=== PATIENT | male | born 1930 | race Caucasian/White ===

== ENCOUNTER 2016-12-08 17:28 | Inpatient (IN) | payer BC, OTHER ==
[~2016-12-08] VITALS: Ht 165.1 cm; Wt 64.0 kg
[2016-12-08] MEDS ORDERED: ONDANSETRON 4 MG INJ IV STA (19:14)
[2016-12-08] MEDS ORDERED: LIDOCAINE/MYLANTA 40 ML BTL PO STA (19:14)
[2016-12-08] MEDS ORDERED: SOD CHLORIDE 0.9% 1,000 ML IV STA (19:14)
[2016-12-08] MEDS ORDERED: BELLADONNA/PHENOBARBITAL TAB PO STA (19:14)
[2016-12-08] MEDS ORDERED: KETOROLAC 15 MG INJ IV STA (19:14)
[2016-12-08] MEDS ORDERED: FAMOTIDINE 20 MG TAB PO STA (19:14)
[2016-12-08] MEDS ORDERED: PIPER-TAZO 3.375 GM IV (PMX) 100 ML IVPB ONE (21:00)
[2016-12-08] MEDS ORDERED: SOD CHLORIDE 0.9% 1,000 ML IV ONE (21:00)
--- NOTE | 2016-12-08 21:56 | RADRPT ---
PROCEDURE: CT abdomen and pelvis without intravenous contrast. CLINICAL INDICATION: Pain. TECHNIQUE: CT of the abdomen/pelvis was performed utilizing axial images with reconstructions in s agittal and coronal planes. The administered radiation dose is CTDI 7.7 mGy, DLP 431 mGy-cm. One or more of the following dose reduction techniques were used: automated exposure control, adjustment of the mA and/or kV according to patient size and/or use of iterative reconstruction technique. COMPARISON: No pertinent prior examinations were submitted for comparison. FINDINGS: Visualized Chest: The visualized lung bases are clear. Abdomen: The liver, spleen, and adrenal glands are unremarkable. There are mild peripancreatic inflammatory changes. Within the limits of a noncontrast exam, no definite fluid collections are seen. Prior cho lecystectomy is noted. The kidneys are without hydronephrosis. Punctate nonobstructive calculi are noted within both kidne ys. There is no evidence of bowel obstruction. The appendix is normal. No intra-abdominal free air is seen. Numerous diverticula are noted along the descending and sigmoid colon without evidence of div erticulitis. There is no evidence of intra-abdominal adenopathy or free fluid. Pelvis: There are small to moderate left and small right fat containing inguinal hernias. Prior TURP procedu re is noted. The urinary bladder is unremarkable. There is no pelvic adenopathy or free fluid. Osseous structures: Unremarkable. IMPRESSION: Findings compatible with acute pancreatitis. Bilateral nephrolithiasis. Colonic diverticulosis. Bilateral fat containing inguinal hernias. RPTAT: HIKT .Omar Blanton MD, Date Time Electronically viewed and signed by .Omar Blanton MD, on 12/08/2016 21:56 .T/
--- NOTE | 2016-12-08 22:05 | ERD ---
ER Documentation Chief Complaint Chief Complaint EPIGASTRIC PAIN SINCE THIS AFTERNOON HPI A 6-year-old man presents with epigastric abdominal pain gradual onset beginning this afternoon while sitting down watching football, he states pain began after eating, associated with belching, regurgitation, and bloating sensation. Patient has a history of remote alcoholism, denies blood per rectum or melena, no fevers or chills, no cough, no chest pain, no shortness of breath. Patient denies headache or blurry vision. Patient status post cholecystectomy many years ago. ROS All systems reviewed and are negative except as per history of present illness. Allergies Allergies: Coded Allergies: No Known Allergies (Unverified Allergy, Unknown, 12/08/16) PMhx/Soc Remote alcoholism, hypertension, gastritis, BPH History of Surgery: Yes (R knee replacement, cataracts, Prostate Sx) Anesthesia Reaction: No Hx Neurological Disorder: No Hx Respiratory Disorders: No Hx Cardiac Disorders: Yes (HTN) Hx Psychiatric Problems: No Hx Miscellaneous Medical Probl: No Hx Alcohol Use: No Hx Substance Use: No Hx Tobacco Use: No Smoking Status: Former smoker FmHx Family History: No diabetes Physical Exam Vitals Vital Signs Date Time Temp Pulse Resp B/P Pulse Ox O2 Delivery O2 Flow Rate FiO2 12/08/16 17:31 98.1 82 18 169/72 99 Physical Exam GENERAL: Well-developed, well-nourished, well-hydrated, moderate pain, looks nontoxic in appearance, afebrile HEENT: Moist mucous membranes, pink conjunctiva, no cervical spine tenderness or step-off deformities, no goiter, no jaundice or icterus, extraocular movements intact without pain. No submandibular induration, and no pharyngeal erythema NEURO: Alert and oriented 3, cranial nerves II through XII intact bilaterally, pupils equal round reactive to light, no focal deficits or facial asymmetry, sensation intact distally Strength 5/5 in upper and lower extremities bilaterally CARDIAC: Regular rate and rhythm, no murmurs rubs or gallops LUNGS: Clear bilaterally no wheezing crackles or stridor ABDOMEN: Diffuse abdominal tenderness to touch, PMI at the epigastrium, voluntary guarding, no rebound or psoas sign SKIN: Warm and dry to touch, no abrasions, contusions, or hematomas, no lacerations, no ecchymosis, no target lesions, and without ulcers EXTREMITIES: No clubbing cyanosis or edema, calves are bilaterally symmetrical, no Homans sign, no popliteal cord sign. Distal pulses equal and bilateral PSYCH: Normal affect without agitation or irritability Result Diagram: 12/08/16192912/08/161929 Results 24 hrs Laboratory Tests Test 12/08/16 19:30 White Blood Count 26.510^3/ul Red Blood Count 4.1910^6/ul Hemoglobin 13.1g/dl Hematocrit 38.5% Mean Corpuscular Volume 91.9fl Mean Corpuscular Hemoglobin 31.3pg Mean Corpuscular Hemoglobin Concent 34.0g/dl Red Cell Distribution Width 12.3% Platelet Count 73111^3/UL Mean Platelet Volume 11.0fl Neutrophils % % Segmented Neutrophils % (Manual) 96% Lymphocytes % % Lymphocytes % (Manual) 2% Monocytes % % Monocytes % (Manual) 2% Eosinophils % % Basophils % % Nucleated Red Blood Cells % 0.0/100WBC Neutrophils # 10^3/ul Absolute Lymphocytes (Manual) 0.510^3/ul Lymphocytes # 10^3/ul Monocytes # 10^3/ul Absolute Monocytes (Manual) 0.510^3/ul Eosinophils # 10^3/ul Basophils # 10^3/ul Nucleated Red Blood Cells # 10^3/ul Platelet Estimate NORMAL Prothrombin Time 12.9Sec Prothrombin Time Ratio 1.0 INR International Normalized Ratio 0.97 Urine Color YELLOW Urine Clarity CLEAR Urine pH 5.0 Urine Specific [place] 1.012 Urine Ketones NEGATIVEmg/dL Urine Nitrite NEGATIVEmg/dL Urine Bilirubin NEGATIVEmg/dL Urine Urobilinogen 2+mg/dL Urine Leukocyte Esterase NEGATIVELeu/ul Urine Hemoglobin NEGATIVEmg/dL Urine Glucose NEGATIVEmg/dL Urine Total Protein NEGATIVEmg/dl Sodium Level 142mmol/L Potassium Level 3.9mmol/L Chloride Level 103mmol/L Carbon Dioxide Level 25mmol/L Anion Gap 18 Blood Urea Nitrogen 18mg/dl Creatinine 0.75mg/dl Glucose Level 185mg/dl Calcium Level 9.4mg/dl Total Bilirubin 0.5mg/dl Direct Bilirubin 0.30mg/dl Indirect Bilirubin 0.2mg/dl Aspartate Amino Transf (AST/SGOT) 235IU/L Alanine Aminotransferase (ALT/SGPT) 158IU/L Alkaline Phosphatase 403IU/L Troponin I < 0.012ng/ml Total Protein 7.4g/dl Albumin 4.1g/dl Globulin 3.30g/dl Albumin/Globulin Ratio 1.24 Lipase 8282U/L Current Medications Medications (Trade) Dose Ordered Sig/Annie Route PRN Reason Start Time Stop Time Status Last Admin Dose Admin Sodium Chloride (NS) 1,000 ml @ 1,000 mls/hr Q1H STAT IV 12/08/16 19:14 12/08/16 20:13 DC 12/08/16 19:56 Ondansetron HCl (Zofran Inj) 4 mg ONCE STAT IV 12/08/16 19:14 12/08/16 19:16 DC 12/08/16 19:56 Famotidine (Pepcid) 40 mg ONCE STAT PO 12/08/16 19:14 12/08/16 19:16 DC 12/08/16 19:56 Miscellaneous Medication (Gi Cocktail (2)) 40 ml ONCE STAT PO 12/08/16 19:14 12/08/16 19:16 DC 12/08/16 19:55 Belladonna/ Phenobarbital () 2 tab ONCE STAT PO 12/08/16 19:14 12/08/16 19:16 DC 12/08/16 19:56 Ketorolac Tromethamine 15 mg 15 mg ONCE STAT IV 12/08/16 19:14 12/08/16 19:16 DC 12/08/16 19:55 Piperacillin Sod/ Tazobactam Sod 100 ml @ 200 mls/hr ONCE ONCE IVPB 12/08/16 21:00 12/08/16 21:29 DC 12/08/16 21:48 Sodium Chloride (NS) 1,000 ml @ 1,000 mls/hr Q1H ONCE IV 12/08/16 21:00 12/08/16 21:59 DC 12/08/16 21:48 Procedures/MDM IV line was established patient was placed on marketing graphics specialist rhythm strip revealed a sinus rhythm at about 70 bpm with upright P and T waves. Patient was afebrile. EKG performed, read by me: 74 bpm, normal sinus rhythm, normal axis, no acute ST segment changes, narrow QRS complex, with good R-wave progression in precordial leads. I administered 1 L normal saline intravenously, Toradol 15 mg IV, Zofran 4 mg IV , GI cocktail 30 cc p.o., famotidine 40 mg p.o. with good response. CT scan of the abdomen and pelvis revealed acute pancreatitis. Please refer to radiologist dictation for full report. I administered another liter of normal saline for a total of 2 L, patient also received Zosyn 3.375 g IV. CBC reveals a leukocytosis at 27, electrolytes unremarkable, liver function tests revealed mild transaminitis and elevated alkaline phosphatase, troponin negative. Urine analysis was negative for infection. Patient will be admitted to telemetry setting for acute pancreatitis. Vital signs are normal and patient's pain has been controlled. Departure Diagnosis: Primary Impression: Acute pancreatitis Pancreatitis type: alcohol induced Acute pancreatitis complication: unspecified Qualified Code: K85.20 - Alcohol-induced acute pancreatitis, unspecified complication status Additional Impressions: Leukocytosis Leukocytosis type: lymphocytosis Qualified Code: D72.820 - Lymphocytosis Transaminitis Condition: BRIANA Chopra MD Dec 08, 2016 22:05
[2016-12-08] MEDS ORDERED: ACETAMINOPHEN 325 MG TAB PO PRN (22:30)
[2016-12-08] MEDS ORDERED: DOCUSATE SODIUM 100 MG CAP PO PRN (22:30)
[2016-12-08] MEDS ORDERED: ONDANSETRON 4 MG INJ IV PRN (22:30)
[2016-12-08] MEDS ORDERED: NACL 0.9% 3 ML SYG IV SCH (22:30)
[2016-12-08] MEDS ORDERED: HYDROCODONE/APAP (5/325) TAB PO PRN ×2 (22:30)
[2016-12-09] VITALS (11 sets, daily range): BP systolic 140–162; BP diastolic 60–75; PULSE 72–80; RESP 17–20; Ht 165.1 cm; Wt 64.0 kg
[2016-12-09] MEDS: D5-NS + KCL 20 MEQ 1,000 ML IV SCH ×3 (03:23→22:07)
[2016-12-09] MEDS: FAMOTIDINE 20 MG TAB PO SCH ×3 (03:24→22:05)
[2016-12-09] MEDS: ENOXAPARIN 40 MG/0.4 ML SYG SC SCH (08:46)
--- NOTE | 2016-12-09 14:11 | HP ---
Date/Time of Note Date/Time of Note DATE: 12/09/16 TIME: 13:51 Assessment/Plan VTE Prophylaxis VTE Prophylaxis Intervention: LMWH Lines/Catheters IV [facility] Peripheral IV Urinary Cath still in place: No Assessment/Plan Assessment/Plan 86-year-old male with: 1. Acute pancreatitis, still with some ongoing symptoms but much improved, he is n.p.o., white blood cell count down to 18K, Follow up repeat LFTs, lipid panel, amylase, lipase MRCP, if there is any signs or suspicion for pancreatic duct occlusion will have gastroenterology consulted for possible ERCP. Continue pain control, n.p.o. except for meds status. Continue IV fluids, monitor pancreatic enzymes and WBC 2. Hypertension: Resume home medications 3. BPH: Resume Flomax 4. Cataracts: Resume eyedrops Prophylaxis: Lovenox for DVT prophylaxis, Pepcid for GI prophylaxis Disposition: Follow-up on pancreatic enzymes, liver profile, lipid panel, MRCP. Keep n.p.o. for now. HPI/ROS Admit Date/Time Admit Date/Time Dec 08, 2016 at 22:16 ROS Chief complaint: Abdominal pain History of presenting illness: This is a 86-year-old male with history of cholecystectomy in 2014, hypertension, BPH who presented emergency department with acute onset of epigastric pain. Patient reports that he had some chocolate apparently yesterday morning and in the early afternoon he started having acute, severe epigastric pain, the pain was so severe he started feeling dizzy. He reports nausea, tremors, vomiting here in the emergency department. No fevers, no chills. He had a similar episode of epigastric pain 3 weeks ago that apparently resolved after he had some Sprite and burped. This episode yesterday was much more severe and not alleviated by anything he would do. In the emergency department he was found to have significant leukocytosis with a white blood cell count of 23K, also he is a lipase came back in the 8000s. CAT scan of the abdomen and pelvis did show acute pancreatitis, however there is no comment regarding the biliary system or possibility of pancreatic duct obstruction. MRCP will be ordered. We will continue IV fluids and treatment for acute severe pancreatitis. I agree with discontinuation of antibiotics for now. This morning, his pain is much improved, this seems to be mostly tenderness to palpation. Repeat pancreatic enzymes are pending Constitutional: no complaints Eyes: no complaints ENT: no complaints Respiratory: no complaints Cardiovascular: no complaints Gastrointestinal: pain (Epigastric) Genitourinary: no complaints Musculoskeletal: no complaints Neurologic: no complaints PMH/Family/Social Past Medical History Hypertension BPH Cataracts Past Surgical History Status post left lower extremity angiogram for "blood blockage" 2012 Status post cholecystectomy 2014 Status post prostate surgery 2014 Status post hernia repair 2014 Status post left knee replacement July 2016 Status post cataract surgery September 2016 Family History Significant Family History: no pertinent family hx Social History Alcohol Use: none (Quit more than 15 years ago) Smoking Status: Former smoker (Quit 5 years ago) Drug Use: none Exam/Review of Systems Vital Signs Vitals Vital Signs Date Time Temp Pulse Resp B/P Pulse Ox O2 Delivery O2 Flow Rate FiO2 12/09/16 12:58 72 12/09/16 11:24 98.1 17 152/67 97 12/09/16 02:00 Room Air Intake and Output 12/08/16 12/08/16 12/09/16 15:00 23:00 07:00 Intake Total 225 ml Output Total 850 ml Balance -625 ml Exam Constitutional: alert, oriented, well developed Respiratory: clear to auscultation, normal air movement Cardiovascular: nl pulses, regular rate and rhythm Gastrointestinal: soft, tender (Epigastric tenderness to palpation, moderate) Musculoskeletal: nl extremities to inspection, nl gait and stance Extremities: normal pulses, other (No edema, clubbing or cyanosis) Neurological: STUDIO TECHNICIAN II-XII intact, nl mental status, nl speech, nl strength Labs Result Diagram: 12/09/16 0559 12/09/16 0559 Medications Medications Current Medications Ondansetron HCl (Zofran Inj) 4 mg Q6H PRN IV NAUSEA AND/OR VOMITING; Start at 22:30 Acetaminophen (Tylenol Tab) 650 mg Q6H PRN PO PAIN LEVEL 1-3 OR FEVER; Start 12/08/16 at 22:30 Acetaminophen/ Hydrocodone Bitart ([place] (5/325)) 1 tab Q6H PRN PO PAIN LEVEL 4 -6; Start 12/08/16 at 22:30 Acetaminophen/ Hydrocodone Bitart ([place] (5/325)) 2 tab Q6H PRN PO PAIN LEVEL 7 -10; Start 12/08/16 at 22:30 Docusate Sodium (Colace) 100 mg Q12H PRN PO CONSTIPATION; Start 12/08/16 at 22 :30 Famotidine (Pepcid) 20 mg Q12 PO Last administered on 12/09/16 08:39; Admin Dose 20 MG; Start 12/08/16 at 22:30 Enoxaparin Sodium 40 mg 40 mg DAILY SC Last administered on 12/09/16 08:46; Admin Dose 40 MG; Start 12/09/16 at 09:00 Potassium Chloride/Dextrose/ Sod Cl (D5-NS + KCl 20 Meq) 1,000 ml @ 75 mls/hr [id number] IV Last administered on 12/09/16 03:23; Admin Dose 75 MLS/HR; Start 12/08/16 at 23:30 Influenza Virus Vaccine (Fluzone) 0.5 ml ONCE ONCE IM* ; Start 12/10/16 at 12: 00; Stop 12/10/16 at 12:01 RUPALI CHAPA Dec 09, 2016 14:01
[2016-12-09] MEDS ORDERED: hydrALAzine 20 MG INJ IV PRN (15:00)
[2016-12-09] MEDS: ENALAPRIL 20 MG TAB PO SCH (15:24)
[2016-12-09] MEDS: AMLODIPINE 5 MG TAB PO SCH (15:24)
[2016-12-09] MEDS ORDERED: AMLO2.5T78 PO (15:30)
[2016-12-09] MEDS ORDERED: ENAL20TA PO (15:30)
[2016-12-09] MEDS ORDERED: BIMA2.5D BOTH EYES (15:30)
[2016-12-09] MEDS ORDERED: ASPI-535 PO (15:30)
[2016-12-09] MEDS ORDERED: TAMS0.4C2 PO (15:30)
--- NOTE | 2016-12-09 16:09 | CONS ---
Date/Time of Note Date/Time of Note DATE: 12/09/16 TIME: 15:43 Assessment/Plan Assessment/Plan Chief Complaint/Hosp Course Summary Assessment and Plan: Assessment: Acute pancreatitis R/O obstruction vs versus viral infection versus idiopathic etiology Leukocytosis-trending down Hypertension BPH Cataracts Glaucoma Plan: Keep n.p.o. Continue IV fluids Pain management MRCP today-will alter treatment plan based on results Will check hepatitis panel Continue to monitor lipase/LFT's Chief Complaint/Reason for Visit: Acute Pancreatitis History of Present Illness: This is a pleasant 86-year-old male with past medical history of cholecystectomy 2013, hypertension, glaucoma, and BPH, who presented to the ER Friday with severe epigastric pain described as an ache, and rated 10 out of 10 on pain scale. Patient notes pain began post prandial, nothing seemed to relieve or aggravate the pain, however pain became progressively worse. Upon admission patient complained of dizziness and emesis 1. Lipase at the time of admission was in the 8000s, WBC was 26.5 AST and ALT were both elevated 235 and 158. CAT scan abdomen and pelvis was obtained, compatible with acute pancreatitis, lateral nephrolithiasis, colonic diverticulosis, bilateral fat- containing inguinal hernia. Patient is currently n.p.o. on IV fluids labs rechecked lipase is now in the 3000, WBC 18.8, and AST/ALT are trending down. At the time examination patient states epigastric pain has significantly decreased, pain is still described as an 8 and only rated as a 1/10. He currently denies nausea, vomiting, hematemesis, hematochezia, unintentional weight loss, and has never had a colonoscopy. There is no family history of colon cancer that patient is aware of. A MRCP has been ordered and will be done today. Will await results for further recommendations. 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 Allergies: No known allergies Family History: No pertinent family history Social History: Quit drinking alcohol 15 years ago Quit smoking 5 years ago No history of any type of drug use Problems: Consultation Date/Type/Reason Admit Date/Time Dec 08, 2016 at 22:16 Date of Consultation: Dec 09, 2016 Type of Consultation: GI Reason for Consultation Acute pancreatitis Constitutional: no complaints Eyes: no complaints ENT: no complaints Respiratory: no complaints Cardiovascular: no complaints Gastrointestinal: pain (Epigastric) Genitourinary: no complaints Musculoskeletal: no complaints Neurologic: no complaints Past Medical History Medical History: hypertension, other (BPH, glaucoma, cataracts) Past Surgical History Past Surgical Hx: cholecystectomy Family History Significant Family History: no pertinent family hx Social History Alcohol Use: none (Quit more than 15 years ago) Smoking Status: Former smoker (Quit 5 years ago) Drug Use: none Exam/Review of Systems Vital Signs Vitals Vital Signs Date Time Temp Pulse Resp B/P Pulse Ox O2 Delivery O2 Flow Rate FiO2 12/09/16 12:58 72 12/09/16 11:24 98.1 17 152/67 97 12/09/16 02:00 Room Air Intake and Output 12/08/16 12/08/16 12/09/16 15:00 23:00 07:00 Intake Total 225 ml Output Total 850 ml Balance -625 ml Exam Constitutional: alert, oriented Psych: no complaints Head: atraumatic, normocephalic Eyes: nl conjunctiva ENMT: nl external ears & nose Neck: non-tender, supple Respiratory: clear to auscultation Cardiovascular: regular rate and rhythm Gastrointestinal: bowel sounds, soft, surgical scars, tender, No ascites, No distended, No firm, No hepatomegaly, No mass, No rebound or guarding, No splenomegaly Results Result Diagram: 12/09/16 0559 12/09/16 0559 Results 24 hrs Laboratory Tests Test 12/08/16 19:30 12/08/16 22:48 12/09/16 05:57 12/09/16 05:59 White Blood Count 26.5 H 18.8 #H Red Blood Count 4.19 L 3.71 L Hemoglobin 13.1 L 11.6 L Hematocrit 38.5 L 34.0 L Mean Corpuscular Volume 91.9 91.6 Mean Corpuscular Hemoglobin 31.3 31.3 Mean Corpuscular Hemoglobin Concent 34.0 34.1 Red Cell Distribution Width 12.3 12.4 Platelet Count 267 217 Mean Platelet Volume 11.0 H 11.3 H Neutrophils % 89.4 H Segmented Neutrophils % (Manual) 96 H Lymphocytes % 6.3 L Lymphocytes % (Manual) 2 L Monocytes % 3.7 Monocytes % (Manual) 2 Eosinophils % 0.0 Basophils % 0.2 Nucleated Red Blood Cells % 0.0 0.0 Neutrophils # 16.9 H Absolute Lymphocytes (Manual) 0.5 L Lymphocytes # 1.2 Monocytes # 0.7 Absolute Monocytes (Manual) 0.5 Eosinophils # 0.0 Basophils # 0.0 Nucleated Red Blood Cells # 0.0 Platelet Estimate NORMAL Prothrombin Time 12.9 Prothrombin Time Ratio 1.0 INR International Normalized Ratio 0.97 Urine Color YELLOW Urine Clarity CLEAR Urine pH 5.0 Urine Specific [place] 1.012 Urine Ketones NEGATIVE Urine Nitrite NEGATIVE Urine Bilirubin NEGATIVE Urine Urobilinogen 2+ H Urine Leukocyte Esterase NEGATIVE Urine Hemoglobin NEGATIVE Urine Glucose NEGATIVE Urine Total Protein NEGATIVE Sodium Level 142 142 Potassium Level 3.9 4.2 Chloride Level 103 111 H Carbon Dioxide Level 25 26 Anion Gap 18 H 9 # Blood Urea Nitrogen 18 14 Creatinine 0.75 0.73 Glucose Level 185 116 # Calcium Level 9.4 8.6 Total Bilirubin 0.5 0.3 Direct Bilirubin 0.30 H 0.00 # Indirect Bilirubin 0.2 0.3 Aspartate Amino Transf (AST/SGOT) 235 H 101 #H Alanine Aminotransferase (ALT/SGPT) 158 H 122 H Alkaline Phosphatase 403 H 289 H Troponin I < 0.012 < 0.012 0.013 Total Protein 7.4 6.0 #L Albumin 4.1 3.1 #L Globulin 3.30 H Albumin/Globulin Ratio 1.24 Lipase 8282 H 3874 H Creatine Kinase 78 94 Creatine Kinase Index 0.9 0.7 Creatinine Kinase MB (Mass) 0.74 0.62 Triglycerides Level 35 Cholesterol Level 106 LDL Cholesterol, Calculated 57 HDL Cholesterol 42 Cholesterol/HDL Ratio 2.5 Amylase Level 434 H Thyroid Stimulating Hormone (TSH) 1.560 Medications Medications Current Medications Ondansetron HCl (Zofran Inj) 4 mg Q6H PRN IV NAUSEA AND/OR VOMITING; Start at 22:30 Acetaminophen (Tylenol Tab) 650 mg Q6H PRN PO PAIN LEVEL 1-3 OR FEVER; Start 12/08/16 at 22:30 Acetaminophen/ Hydrocodone Bitart ([place] (5/325)) 1 tab Q6H PRN PO PAIN LEVEL 4 -6; Start 12/08/16 at 22:30 Acetaminophen/ Hydrocodone Bitart ([place] (5/325)) 2 tab Q6H PRN PO PAIN LEVEL 7 -10; Start 12/08/16 at 22:30 Docusate Sodium (Colace) 100 mg Q12H PRN PO CONSTIPATION; Start 12/08/16 at 22 :30 Famotidine (Pepcid) 20 mg Q12 PO Last administered on 12/09/16 08:39; Admin Dose 20 MG; Start 12/08/16 at 22:30 Enoxaparin Sodium 40 mg 40 mg DAILY SC Last administered on 12/09/16 08:46; Admin Dose 40 MG; Start 12/09/16 at 09:00 Potassium Chloride/Dextrose/ Sod Cl (D5-NS + KCl 20 Meq) 1,000 ml @ 75 mls/hr [id number] IV Last administered on 12/09/16 03:23; Admin Dose 75 MLS/HR; Start 12/08/16 at 23:30 Influenza Virus Vaccine (Fluzone) 0.5 ml ONCE ONCE IM* ; Start 12/10/16 at 12: 00; Stop 12/10/16 at 12:01 Amlodipine Besylate (Norvasc) 5 mg DAILY PO ; Start 12/09/16 at 14:30 Enalapril Maleate (Vasotec) 20 mg DAILY PO ; Start 12/09/16 at 14:30 Tamsulosin HCl (Flomax) 0.4 mg HS PO ; Start 12/09/16 at 21:00 Hydralazine HCl (Apresoline) 10 mg Q8H PRN IV ELEVATED BLOOD PRESSURE; Start 12/09/16 at 15:00 Copies To: CC: KATELIN RODRIGUEZ MD, VICTORIA Dec 09, 2016 16:00
--- NOTE | 2016-12-09 20:43 | RADRPT ---
PROCEDURE: MRCP. CLINICAL INDICATION: Upper abdominal pain. Severe pancreatitis. History of cholecystectomy. TECHNIQUE: MRCP was performed on the a high-resolution, high [place] field strength scanner. Patien cora was examined without contrast. 3-D coronal rotating MIP images of the biliary tree are available for review. COMPARISON: CT abdomen and pelvis 12/08/2016. FINDINGS: Gallbladder is surgically absent. There is mild intrahepatic and common bile duct dilatation. Common bile duct measures up to 9 mm. There are a few hypointense round structures in the common bile duct measures up to 5 mm in keeping with choledocholithiasis. There is no stricture or obstruction. The pancreatic duct is unremarkable. Redemonstrated are inflammatory changes centered around the head an d uncinate process of the pancreas in keeping with pancreatitis. There is no organized peripancreati c fluid collection. IMPRESSION: 1. Status post cholecystectomy. Mild intrahepatic and common bile duct dilatation. A few CBD stone s measures up to 5 mm. 2. Pancreatitis centered in the head and uncinate process of the pancreas. No organized peripancrea tic fluid collection. RPTAT: HHO .Live Cruz MD, Date Time Electronically viewed and signed by .Live Cruz MD, on 12/09/2016 20:42 .O/
[2016-12-09] MEDS: TAMSULOSIN (SR) 0.4 MG CAP PO SCH (22:05)
[2016-12-10 01:58] VITALS: BP 117/60; RESP 18
[2016-12-10] MEDS: D5-NS + KCL 20 MEQ 1,000 ML IV SCH ×3 (02:10→22:50)
[2016-12-10 07:59] VITALS: BP 154/67; RESP 18
[2016-12-10] MEDS: ENALAPRIL 20 MG TAB PO SCH (09:47)
[2016-12-10] MEDS: AMLODIPINE 5 MG TAB PO SCH (09:47)
[2016-12-10] MEDS: FAMOTIDINE 20 MG TAB PO SCH ×2 (09:47→20:03)
[2016-12-10] MEDS: ENOXAPARIN 40 MG/0.4 ML SYG SC SCH (10:05)
--- NOTE | 2016-12-10 11:45 | PN ---
Date/Time of Note Date/Time of Note DATE: 12/10/16 TIME: 11:35 Assessment/Plan VTE Prophylaxis VTE Prophylaxis Intervention: ambulation, SCD's Lines/Catheters IV C[facility] Type (from [facility] [place] Urinary Cath still in place: No Assessment/Plan Chief Complaint/Hosp Course Summary Assessment and Plan: Assessment: Acute pancreatitis r/t obstruction with confirmation on MRCP Leukocytosis-trending down today 10.3 Hypertension BPH Cataracts Glaucoma Plan: Keep n.p.o. Continue IV fluids Pain management MRCP reviewed by me copied below 1. Status post cholecystectomy. Mild intrahepatic and common bile duct dilatation. A few CBD stones measures up to 5 mm. 2. Pancreatitis centered in the head and uncinate process of the pancreas. No organized peripancreatic fluid collection. Plan for ERCP with the resolution of pancreatitis Hepatitis panel/ pending likely negative Continue to monitor lipase trending down today's 2323 Monitor LFTs AST is trending down 77, ALT is 237 Patient seen in collaboration with Dr. Allison Subjective: Course reviewed with nursing staff Patient interviewed and examined All labs, imaging and other results reviewed Discussed results with patient and family (with patient's permission) Patient will need ERCP in the near future after resolution of acute pancreatitis Maykel discussed with patient and family all verbalized understanding Agreed to procedure Problems: Exam/Review of Systems Vital Signs Vitals Vital Signs Date Time Temp Pulse Resp B/P Pulse Ox O2 Delivery O2 Flow Rate FiO2 12/10/16 07:59 98.0 63 18 154/67 95 12/09/16 02:00 Room Air Intake and Output 12/09/16 12/09/16 12/10/16 15:00 23:00 07:00 Intake Total 775 ml 620 ml Output Total 1000 ml Balance -225 ml 620 ml Exam Constitutional: alert, oriented Psych: no complaints Head: atraumatic, normocephalic Eyes: nl conjunctiva ENMT: nl external ears & nose, nl lips & teeth Neck: non-tender, supple Respiratory: clear to auscultation Cardiovascular: regular rate and rhythm Gastrointestinal: bowel sounds, soft, surgical scars, tender, No ascites, No distended, No firm, No hepatomegaly, No mass, No rebound or guarding, No splenomegaly Results Result Diagram: 12/10/16 0540 12/10/16 0540 Results 24 hrs Laboratory Tests Test 12/10/16 05:40 White Blood Count 10.3 # Red Blood Count 3.55 L Hemoglobin 10.7 L Hematocrit 32.5 L Mean Corpuscular Volume 91.5 Mean Corpuscular Hemoglobin 30.1 Mean Corpuscular Hemoglobin Concent 32.9 Red Cell Distribution Width 12.5 Platelet Count 203 Mean Platelet Volume 11.4 H Neutrophils % 80.6 H Lymphocytes % 11.3 L Monocytes % 6.6 Eosinophils % 0.8 Basophils % 0.2 Nucleated Red Blood Cells % 0.0 Neutrophils # 8.3 H Lymphocytes # 1.2 Monocytes # 0.7 Eosinophils # 0.1 Basophils # 0.0 Nucleated Red Blood Cells # 0.0 Sodium Level 139 Potassium Level 3.6 Chloride Level 107 Carbon Dioxide Level 25 Anion Gap 11 Blood Urea Nitrogen 10 Creatinine 0.64 Glucose Level 101 Calcium Level 8.1 L Phosphorus Level 2.8 Magnesium Level 2.1 Total Bilirubin 0.3 Direct Bilirubin 0.00 Indirect Bilirubin 0.3 Aspartate Amino Transf (AST/SGOT) 36 # Alanine Aminotransferase (ALT/SGPT) 77 H Alkaline Phosphatase 237 H Total Protein 5.8 L Albumin 2.9 L Globulin 2.90 Albumin/Globulin Ratio 1.00 Amylase Level 266 #H Lipase 2323 H Medications Medications Current Medications Ondansetron HCl (Zofran Inj) 4 mg Q6H PRN IV NAUSEA AND/OR VOMITING; Start at 22:30 Acetaminophen (Tylenol Tab) 650 mg Q6H PRN PO PAIN LEVEL 1-3 OR FEVER; Start 12/08/16 at 22:30 Acetaminophen/ Hydrocodone Bitart ([place] (5/325)) 1 tab Q6H PRN PO PAIN LEVEL 4 -6; Start 12/08/16 at 22:30 Acetaminophen/ Hydrocodone Bitart ([place] (5/325)) 2 tab Q6H PRN PO PAIN LEVEL 7 -10; Start 12/08/16 at 22:30 Docusate Sodium (Colace) 100 mg Q12H PRN PO CONSTIPATION; Start 12/08/16 at 22 :30 Famotidine (Pepcid) 20 mg Q12 PO Last administered on 12/10/16 09:47; Admin Dose 20 MG; Start 12/08/16 at 22:30 Enoxaparin Sodium 40 mg 40 mg DAILY SC Last administered on 12/10/16 10:05; Admin Dose 40 MG; Start 12/09/16 at 09:00 Potassium Chloride/Dextrose/ Sod Cl (D5-NS + KCl 20 Meq) 1,000 ml @ 100 mls/hr Q10H IV Last administered on 12/10/16 11:28; Admin Dose 100 MLS/HR; Start at 23:30 Influenza Virus Vaccine (Fluzone) 0.5 ml ONCE ONCE IM* ; Start 12/10/16 at 12: 00; Stop 12/10/16 at 12:01 Amlodipine Besylate (Norvasc) 5 mg DAILY PO Last administered on 12/10/16 09: 47; Admin Dose 5 MG; Start 12/09/16 at 14:30 Enalapril Maleate (Vasotec) 20 mg DAILY PO Last administered on 12/10/16 09: 47; Admin Dose 20 MG; Start 12/09/16 at 14:30 Tamsulosin HCl (Flomax) 0.4 mg HS PO Last administered on 12/09/16 22:05; Admin Dose 0.4 MG; Start 12/09/16 at 21:00 Hydralazine HCl (Apresoline) 10 mg Q8H PRN IV ELEVATED BLOOD PRESSURE; Start 12/09/16 at 15:00 GLORIA DIAZ Dec 10, 2016 11:45
[2016-12-10] MEDS ORDERED: INFLUENZA VIRUS VACCINE 0.5 ML SYG IM* ONE (12:00)
--- NOTE | 2016-12-10 13:09 | PN ---
Date/Time of Note Date/Time of Note DATE: 12/10/16 TIME: 13:00 Assessment/Plan VTE Prophylaxis VTE Prophylaxis Intervention: LMWH Lines/Catheters IV [facility] Type (from [facility] Peripheral IV Urinary Cath still in place: No Assessment/Plan Assessment/Plan 86-year-old male with: 1. Acute pancreatitis, still with some ongoing symptoms but keeps improving. WBC down to normal. LFTs improving, amylase and lipase trending down, lipid panel within normal Continue pain control, n.p.o. except for meds status. Continue IV fluids, monitor pancreatic enzymes and WBC Appreciate GI recommendation, ERCP to be planned once acute pancreatitis resolved. 2. Hypertension: Continue home medications 3. BPH: Continue Flomax 4. Cataracts: Resume eyedrops if patient can provided. Prophylaxis: Lovenox for DVT prophylaxis, Pepcid for GI prophylaxis Disposition: Monitor pancreatic enzymes and liver function, follow-up further gastroenterology recommendation regarding timing of ERCP. Subjective 24 Hr Interval Summary Free Text/Dictation Patient remained stable, white blood cell count has normalized, pain getting enzymes are trending down lipase down to 2300 today, appreciate recommendations from GI. With keeping n.p.o. for now except for meds, repeat labs tomorrow. Patient reports he has less pain still has soreness in the epigastric area. Plan for ERCP once pancreatitis resolved per gastroenterology. Exam/Review of Systems Vital Signs Vitals Vital Signs Date Time Temp Pulse Resp B/P Pulse Ox O2 Delivery O2 Flow Rate FiO2 12/10/16 07:59 98.0 63 18 154/67 95 12/09/16 02:00 Room Air Intake and Output 12/09/16 12/09/16 12/10/16 15:00 23:00 07:00 Intake Total 775 ml 620 ml Output Total 1000 ml Balance -225 ml 620 ml Exam Constitutional: alert, oriented, well developed Respiratory: clear to auscultation, normal air movement Cardiovascular: nl pulses, regular rate and rhythm Gastrointestinal: soft, tender (Epigastric, mild to moderate on palpation) Musculoskeletal: nl extremities to inspection Extremities: normal pulses, other (No edema, clubbing or cyanosis) Neurological: WIDE AREA NETWORK SYSTEMS ADMINISTRATOR II-XII intact, nl mental status, nl speech, nl strength Results Result Diagram: 12/10/1640 12/10/16 0540 Results 24 hrs Laboratory Tests Test 12/10/16 05:40 White Blood Count 10.3 # Red Blood Count 3.55 L Hemoglobin 10.7 L Hematocrit 32.5 L Mean Corpuscular Volume 91.5 Mean Corpuscular Hemoglobin 30.1 Mean Corpuscular Hemoglobin Concent 32.9 Red Cell Distribution Width 12.5 Platelet Count 203 Mean Platelet Volume 11.4 H Neutrophils % 80.6 H Lymphocytes % 11.3 L Monocytes % 6.6 Eosinophils % 0.8 Basophils % 0.2 Nucleated Red Blood Cells % 0.0 Neutrophils # 8.3 H Lymphocytes # 1.2 Monocytes # 0.7 Eosinophils # 0.1 Basophils # 0.0 Nucleated Red Blood Cells # 0.0 Sodium Level 139 Potassium Level 3.6 Chloride Level 107 Carbon Dioxide Level 25 Anion Gap 11 Blood Urea Nitrogen 10 Creatinine 0.64 Glucose Level 101 Calcium Level 8.1 L Phosphorus Level 2.8 Magnesium Level 2.1 Total Bilirubin 0.3 Direct Bilirubin 0.00 Indirect Bilirubin 0.3 Aspartate Amino Transf (AST/SGOT) 36 # Alanine Aminotransferase (ALT/SGPT) 77 H Alkaline Phosphatase 237 H Total Protein 5.8 L Albumin 2.9 L Globulin 2.90 Albumin/Globulin Ratio 1.00 Amylase Level 266 #H Lipase 2323 H Imaging Free Text/Dictation PROCEDURE: MRCP. CLINICAL INDICATION: Upper abdominal pain. Severe pancreatitis. History of cholecystectomy. TECHNIQUE: MRCP was performed on the a high-resolution, high [place] field strength scanner. Patient was examined without contrast. 3-D coronal rotating MIP images of the biliary tree are available for review. COMPARISON: CT abdomen and pelvis 12/08/2016. FINDINGS: Gallbladder is surgically absent. There is mild intrahepatic and common bile duct dilatation. Common bile duct measures up to 9 mm. There are a few hypointense round structures in the common bile duct measures up to 5 mm in keeping with choledocholithiasis. There is no stricture or obstruction. The pancreatic duct is unremarkable. Redemonstrated are inflammatory changes centered around the head and uncinate process of the pancreas in keeping with pancreatitis. There is no organized peripancreatic fluid collection. IMPRESSION: 1. Status post cholecystectomy. Mild intrahepatic and common bile duct dilatation. A few CBD stones measures up to 5 mm. 2. Pancreatitis centered in the head and uncinate process of the pancreas. No organized peripancreatic fluid collection. RPTAT: HHO .Live Cruz MD, MD Date Time Electronically viewed and signed by .Live Cruz MD, on 12/09/2016 20:42 Medications Medications Current Medications Ondansetron HCl (Zofran Inj) 4 mg Q6H PRN IV NAUSEA AND/OR VOMITING; Start at 22:30 Acetaminophen (Tylenol Tab) 650 mg Q6H PRN PO PAIN LEVEL 1-3 OR FEVER; Start 12/08/16 at 22:30 Acetaminophen/ Hydrocodone Bitart ([place] (5/325)) 1 tab Q6H PRN PO PAIN LEVEL 4 -6; Start 12/08/16 at 22:30 Acetaminophen/ Hydrocodone Bitart ([place] (5/325)) 2 tab Q6H PRN PO PAIN LEVEL 7 -10; Start 12/08/16 at 22:30 Docusate Sodium (Colace) 100 mg Q12H PRN PO CONSTIPATION; Start 12/08/16 at 22 :30 Famotidine (Pepcid) 20 mg Q12 PO Last administered on 12/10/16 09:47; Admin Dose 20 MG; Start 12/08/16 at 22:30 Enoxaparin Sodium 40 mg 40 mg DAILY SC Last administered on 12/10/16 10:05; Admin Dose 40 MG; Start 12/09/16 at 09:00 Potassium Chloride/Dextrose/ Sod Cl (D5-NS + KCl 20 Meq) 1,000 ml @ 100 mls/hr Q10H IV Last administered on 12/10/16 11:28; Admin Dose 100 MLS/HR; Start at 23:30 Amlodipine Besylate (Norvasc) 5 mg DAILY PO Last administered on 12/10/16 09: 47; Admin Dose 5 MG; Start 12/09/16 at 14:30 Enalapril Maleate (Vasotec) 20 mg DAILY PO Last administered on 12/10/16 09: 47; Admin Dose 20 MG; Start 12/09/16 at 14:30 Tamsulosin HCl (Flomax) 0.4 mg HS PO Last administered on 12/09/16 22:05; Admin Dose 0.4 MG; Start 12/09/16 at 21:00 Hydralazine HCl (Apresoline) 10 mg Q8H PRN IV ELEVATED BLOOD PRESSURE; Start 12/09/16 at 15:00 RUPALI CHAPA Dec 10, 2016 13:09
[2016-12-10 13:33] VITALS: BP 121/53; RESP 17
[2016-12-10] MEDS: TAMSULOSIN (SR) 0.4 MG CAP PO SCH (20:03)
[2016-12-10 20:39] VITALS: BP 145/65; RESP 18
[2016-12-11] VITALS (12 sets, daily range): BP systolic 114–149; BP diastolic 56–70; PULSE 60–62; RESP 14–20
[2016-12-11] MEDS: D5-NS + KCL 20 MEQ 1,000 ML IV SCH ×2 (00:01→10:25)
[2016-12-11] MEDS: AMLODIPINE 5 MG TAB PO SCH (08:32)
[2016-12-11] MEDS: FAMOTIDINE 20 MG TAB PO SCH ×2 (08:32→21:20)
[2016-12-11] MEDS: ENALAPRIL 20 MG TAB PO SCH (08:33)
[2016-12-11] MEDS: ENOXAPARIN 40 MG/0.4 ML SYG SC SCH (08:39)
--- NOTE | 2016-12-11 09:58 | PN ---
Date/Time of Note Date/Time of Note DATE: 12/11/16 TIME: 09:54 Assessment/Plan VTE Prophylaxis VTE Prophylaxis Intervention: ambulation, SCD's Lines/Catheters IV Catheter Type (from Nrs): Peripheral IV Urinary Cath still in place: No Assessment/Plan Chief Complaint/Hosp Course Summary Assessment and Plan: Assessment: Acute pancreatitis r/t obstruction with confirmation on MRCP Leukocytosis-trending down Hypertension BPH Cataracts Glaucoma Plan: Keep n.p.o. Continue IV fluids Pain management MRCP reviewed by me copied below 1. Status post cholecystectomy. Mild intrahepatic and common bile duct dilatation. A few CBD stones measures up to 5 mm. 2. Pancreatitis centered in the head and uncinate process of the pancreas. No organized peripancreatic fluid collection. Plan for ERCP today Hepatitis panel/ negative lipase trending down- no furhter c/o abd pain Patient seen in collaboration with Dr. Allison Subjective: Course reviewed with nursing staff Patient interviewed and examined All labs, imaging and other results reviewed No further c/o abd pain lipase continues to trend down plan for ERCP this evening Problems: Subjective 24 Hr Interval Summary Constitutional: no complaints Eyes: no complaints ENT: no complaints Respiratory: no complaints Cardiovascular: no complaints Gastrointestinal: No blood, No constipation, No decreased appetite, No diarrhea , No nausea, No pain, No vomiting Genitourinary: no complaints Musculoskeletal: no complaints Skin: no complaints Exam/Review of Systems Vital Signs Vitals Vital Signs Date Time Temp Pulse Resp B/P Pulse Ox O2 Delivery O2 Flow Rate FiO2 12/11/16 07:58 98.3 65 16 148/65 100 12/09/16 02:00 Room Air Intake and Output 12/10/16 12/10/16 12/11/16 15:00 23:00 07:00 Intake Total 500 ml 640 ml Output Total 900 ml 650 ml Balance 500 ml -900 ml -10 ml Results Result Diagram: 12/11/16 0508 12/11/16 0508 Results 24 hrs Laboratory Tests Test 12/11/16 05:08 White Blood Count 6.9 # Red Blood Count 3.70 L Hemoglobin 11.2 L Hematocrit 33.5 L Mean Corpuscular Volume 90.5 Mean Corpuscular Hemoglobin 30.3 Mean Corpuscular Hemoglobin Concent 33.4 Red Cell Distribution Width 12.3 Platelet Count 209 Mean Platelet Volume 11.0 H Neutrophils % 79.2 H Lymphocytes % 11.0 L Monocytes % 7.4 Eosinophils % 1.6 Basophils % 0.4 Nucleated Red Blood Cells % 0.0 Neutrophils # 5.5 Lymphocytes # 0.8 Monocytes # 0.5 Eosinophils # 0.1 Basophils # 0.0 Nucleated Red Blood Cells # 0.0 Prothrombin Time 13.1 Prothrombin Time Ratio 1.0 INR International Normalized Ratio 0.99 Activated Partial Thromboplast Time 35.0 Sodium Level 139 Potassium Level 4.3 Chloride Level 109 Carbon Dioxide Level 25 Anion Gap 9 Blood Urea Nitrogen 7 Creatinine 0.68 Glucose Level 112 Calcium Level 8.6 Phosphorus Level 2.9 Magnesium Level 2.1 Total Bilirubin 0.3 Direct Bilirubin 0.00 Indirect Bilirubin 0.3 Aspartate Amino Transf (AST/SGOT) 22 Alanine Aminotransferase (ALT/SGPT) 64 Alkaline Phosphatase 213 H Total Protein 6.4 Albumin 2.9 L Globulin 3.50 H Albumin/Globulin Ratio 0.82 Amylase Level 116 # Lipase 1204 H Medications Medications Current Medications Ondansetron HCl (Zofran Inj) 4 mg Q6H PRN IV NAUSEA AND/OR VOMITING; Start at 22:30 Acetaminophen (Tylenol Tab) 650 mg Q6H PRN PO PAIN LEVEL 1-3 OR FEVER; Start 12/08/16 at 22:30 Acetaminophen/ Hydrocodone Bitart ([place] (5/325)) 1 tab Q6H PRN PO PAIN LEVEL 4 -6; Start 12/08/16 at 22:30 Acetaminophen/ Hydrocodone Bitart ([place] (5/325)) 2 tab Q6H PRN PO PAIN LEVEL 7 -10; Start 12/08/16 at 22:30 Docusate Sodium (Colace) 100 mg Q12H PRN PO CONSTIPATION Last administered on 12/10/16 20:03; Admin Dose 100 MG; Start 12/08/16 at 22:30 Famotidine (Pepcid) 20 mg Q12 PO Last administered on 12/11/16 08:32; Admin Dose 20 MG; Start 12/08/16 at 22:30 Enoxaparin Sodium 40 mg 40 mg DAILY SC Last administered on 12/11/16 08:39; Admin Dose 40 MG; Start 12/09/16 at 09:00 Potassium Chloride/Dextrose/ Sod Cl (D5-NS + KCl 20 Meq) 1,000 ml @ 100 mls/hr Q10H IV Last administered on 12/10/16 22:50; Admin Dose 100 MLS/HR; Start at 23:30 Amlodipine Besylate (Norvasc) 5 mg DAILY PO Last administered on 12/11/16 08: 32; Admin Dose 5 MG; Start 12/09/16 at 14:30 Enalapril Maleate (Vasotec) 20 mg DAILY PO Last administered on 12/11/16 08: 33; Admin Dose 20 MG; Start 12/09/16 at 14:30 Tamsulosin HCl (Flomax) 0.4 mg HS PO Last administered on 12/10/16 20:03; Admin Dose 0.4 MG; Start 12/09/16 at 21:00 Hydralazine HCl (Apresoline) 10 mg Q8H PRN IV ELEVATED BLOOD PRESSURE; Start 12/09/16 at 15:00 GLORIA DIAZ Dec 11, 2016 09:58
[2016-12-11] MEDS ORDERED: INDOMETHACIN 50 MG SUPP PR ONE (10:00)
[2016-12-11] MEDS ORDERED: CEFAZOLIN 2 GM in SOD CHLORIDE 0.9% 50 ML IVPB ONE (10:00)
[2016-12-11] MEDS ORDERED: CEFAZOLIN 2 GM/50 ML (PMX) 50 ML IVPB SCH (10:30)
--- NOTE | 2016-12-11 16:20 | PN ---
Date/Time of Note Date/Time of Note DATE: 12/11/16 TIME: 16:15 Assessment/Plan VTE Prophylaxis VTE Prophylaxis Intervention: SCD's Lines/Catheters IV Catheter Type (from Nrs): Peripheral IV Urinary Cath still in place: No Assessment/Plan Assessment/Plan 86-year-old male with: 1. Acute pancreatitis, still with some ongoing symptoms but keeps improving. WBC down to normal, lipid panel within normal LFTs much improved, amylase within normal, and lipase keeps trending down to 1200 Continue pain control, n.p.o. except for meds status. Continue IV fluids, ERCP today Appreciate GI recommendations. 2. Hypertension: Continue home medications 3. BPH: Continue Flomax 4. Cataracts: Resume eyedrops if patient can provided. Prophylaxis: Lovenox for DVT prophylaxis, Pepcid for GI prophylaxis Disposition: ERCP today, further recommendation per gastroenterology postprocedure. Subjective 24 Hr Interval Summary Free Text/Dictation Patient doing well, his lipase has trended down to 1200s, he is not having abdominal pain, LFTs within normal, per Dr Allison ERCP today. Exam/Review of Systems Vital Signs Vitals Vital Signs Date Time Temp Pulse Resp B/P Pulse Ox O2 Delivery O2 Flow Rate FiO2 12/11/16 13:15 97.9 72 14 149/70 97 12/09/16 02:00 Room Air Intake and Output 12/10/16 12/10/16 12/11/16 15:00 23:00 07:00 Intake Total 500 ml 640 ml Output Total 900 ml 650 ml Balance 500 ml -900 ml -10 ml Exam Constitutional: alert, oriented, well developed Respiratory: clear to auscultation, normal air movement Cardiovascular: nl pulses, regular rate and rhythm Gastrointestinal: non-tender, soft Musculoskeletal: nl extremities to inspection Extremities: normal pulses, other (No edema, clubbing or cyanosis) Neurological: SENIOR ENGINEERING TECHNICIAN II-XII intact, nl mental status, nl speech, nl strength Results Result Diagram: 12/11/16 0508 12/11/16 0508 Results 24 hrs Laboratory Tests Test 12/11/16 05:08 White Blood Count 6.9 # Red Blood Count 3.70 L Hemoglobin 11.2 L Hematocrit 33.5 L Mean Corpuscular Volume 90.5 Mean Corpuscular Hemoglobin 30.3 Mean Corpuscular Hemoglobin Concent 33.4 Red Cell Distribution Width 12.3 Platelet Count 209 Mean Platelet Volume 11.0 H Neutrophils % 79.2 H Lymphocytes % 11.0 L Monocytes % 7.4 Eosinophils % 1.6 Basophils % 0.4 Nucleated Red Blood Cells % 0.0 Neutrophils # 5.5 Lymphocytes # 0.8 Monocytes # 0.5 Eosinophils # 0.1 Basophils # 0.0 Nucleated Red Blood Cells # 0.0 Prothrombin Time 13.1 Prothrombin Time Ratio 1.0 INR International Normalized Ratio 0.99 Activated Partial Thromboplast Time 35.0 Sodium Level 139 Potassium Level 4.3 Chloride Level 109 Carbon Dioxide Level 25 Anion Gap 9 Blood Urea Nitrogen 7 Creatinine 0.68 Glucose Level 112 Calcium Level 8.6 Phosphorus Level 2.9 Magnesium Level 2.1 Total Bilirubin 0.3 Direct Bilirubin 0.00 Indirect Bilirubin 0.3 Aspartate Amino Transf (AST/SGOT) 22 Alanine Aminotransferase (ALT/SGPT) 64 Alkaline Phosphatase 213 H Total Protein 6.4 Albumin 2.9 L Globulin 3.50 H Albumin/Globulin Ratio 0.82 Amylase Level 116 # Lipase 1204 H Medications Medications Current Medications Ondansetron HCl (Zofran Inj) 4 mg Q6H PRN IV NAUSEA AND/OR VOMITING; Start at 22:30 Acetaminophen (Tylenol Tab) 650 mg Q6H PRN PO PAIN LEVEL 1-3 OR FEVER; Start 12/08/16 at 22:30 Acetaminophen/ Hydrocodone Bitart ([place] (5/325)) 1 tab Q6H PRN PO PAIN LEVEL 4 -6; Start 12/08/16 at 22:30 Acetaminophen/ Hydrocodone Bitart ([place] (5/325)) 2 tab Q6H PRN PO PAIN LEVEL 7 -10; Start 12/08/16 at 22:30 Docusate Sodium (Colace) 100 mg Q12H PRN PO CONSTIPATION Last administered on 12/10/16 20:03; Admin Dose 100 MG; Start 12/08/16 at 22:30 Famotidine (Pepcid) 20 mg Q12 PO Last administered on 12/11/16 08:32; Admin Dose 20 MG; Start 12/08/16 at 22:30 Enoxaparin Sodium 40 mg 40 mg DAILY SC Last administered on 12/11/16 08:39; Admin Dose 40 MG; Start 12/09/16 at 09:00 Potassium Chloride/Dextrose/ Sod Cl (D5-NS + KCl 20 Meq) 1,000 ml @ 100 mls/hr Q10H IV Last administered on 12/11/16 10:25; Admin Dose 100 MLS/HR; Start at 23:30 Amlodipine Besylate (Norvasc) 5 mg DAILY PO Last administered on 12/11/16 08: 32; Admin Dose 5 MG; Start 12/09/16 at 14:30 Enalapril Maleate (Vasotec) 20 mg DAILY PO Last administered on 12/11/16 08: 33; Admin Dose 20 MG; Start 12/09/16 at 14:30 Tamsulosin HCl (Flomax) 0.4 mg HS PO Last administered on 12/10/16 20:03; Admin Dose 0.4 MG; Start 12/09/16 at 21:00 Hydralazine HCl (Apresoline) 10 mg Q8H PRN IV ELEVATED BLOOD PRESSURE; Start 12/09/16 at 15:00 RUPALI CHAPA Dec 11, 2016 16:20
--- NOTE | 2016-12-11 18:10 | HPN ---
Date/Time of Note Date/Time of Note DATE: 12/11/16 TIME: 18:10 Interval H&P Admission Note Pt. seen H&P reviewed: No system changes KATELIN RODRIGUEZ MD Dec 11, 2016 18:10
[2016-12-11] MEDS ORDERED: PROPOFOL 20 ML ONE (18:31)
[2016-12-11] MEDS ORDERED: ROCURONIUM 50 MG INJ ONE (18:31)
[2016-12-11] MEDS ORDERED: FENTAnyl 50 MCG/ML VIAL ONE (18:31)
[2016-12-11] MEDS ORDERED: IOHEXOL 300MG/ML 30 ML BTL ONE (18:32)
[2016-12-11] MEDS ORDERED: CEFAZOLIN 1 GM INJ ONE (18:39)
[2016-12-11] MEDS ORDERED: SUGAMMADEX SODIUM 200 MG/2 ML VIAL IV ONE (18:50)
[2016-12-11] MEDS ORDERED: METOCLOPRAMIDE 10 MG INJ ONE (18:50)
[2016-12-11] MEDS ORDERED: ONDANSETRON 4 MG INJ ONE (18:50)
[2016-12-11] MEDS ORDERED: PHENYLephrine (100 MCG/ML) 5ML SYG ONE (18:50)
[2016-12-11] MEDS ORDERED: DEXAMETHASONE 4 MG/ML 1 ML INJ ONE (18:50)
--- NOTE | 2016-12-11 19:08 | OPPN ---
Date/Time of Note Date/Time of Note DATE: 12/11/16 TIME: 19:05 Proc Note GI Procedure Date 12/11/16 Indication: other (Choledocholithiasis) Pre-procedure Diagnosis Choledocholithiasis Post-procedure Diagnosis Impression: Choledocholithiasis Post sphincterotomy Post balloon dilatation of the ampulla Vater Post stone removal Plan: Close observation N.p.o. until tomorrow at least . Procedure Performed: ERCP (Plus sphincterotomy, balloon dilatation of the ampulla of Vater and stone removal) Surgeon KATELIN RODRIGUEZ MD See signature line Route Cdl Driver none Anesthesia Type: general Anesthesiologist: GOLDIE OLIVERA MD Tourniquet Time none EBL none Transfusion required none Biopsy 1: None Grafts/Implants none Tubes/Drains none Complication(s) none Disposition: PACU Procedure Description After informed consent, with the patient/relatives understanding the procedure, its indications, potential risks and complications, including but not limited to : allergic reaction, bleeding, perforation or infection, and after all pertinent questions were answered to the patients satisfaction, the patient/ relatives signed witnessed informed consent. Following this, premedication was administered slowly IV push under careful cardiovascular and respiratory monitoring with pulse oximetry, automatic blood pressure, and boring machine operator vertical. Once the sedative effect was achieved the patient was place in the prone position in the radiology special procedures suite; the side viewing panendoscope was introduced and advanced under visual control. Careful examination of the upper gastrointestinal tract, both on insertion as well as withdrawal of the instrument disclosed the following findings: Esophagus: The mucosa of the entire appears within normal limits. There is no evidence of esophagitis, varices, neoplasm or stricture. No Hiatal Hernia identified. Stomach: Upon entrance to the stomach air was insufflated, the gastric lemus distended normally, the mucosa of the fundus, body and antrum of the stomach was carefully examined both head-on and on retroflexion, and shows no abnormalities. There is no evidence of gastritis, ulcers, or neoplasm. Pylorus: The pylorus appears patent and within normal limits, with no evidence of gastric outlet obstruction. Duodenum: The duodenal mucosa was carefully examined in the duodenal bulb as well as the second portion of the duodenum and appears unremarkable with no evidence of duodenitis, ulcer or neoplasm. Ampulla of vater: The ampulla of Vater was identified and carefully examined appearing within normal limits. Cannulation: At this point cannulation was accomplished with the following fluoroscopic findings: Pancreatogram: Avoided purposely Cholangiogram: Common bile duct is dilated approximately 8-10 mm maximum diameter. An 8 mm stone is noted in the distal common bile duct. The ampulla is very small therefore only a small sphincterotomy could be performed. At this point a hurricane 8 mm balloon was utilized to dilate the ampulla of Vater and following this a 9-12 mm extraction balloon was utilized and the stone was actually removed without difficulty. A balloon cholangiogram was then obtained showing no additional abnormalities. The instrument was then withdrawn the patient tolerated the procedure well and was transfer out of the endoscopy suite awake, and in good condition to continue to recover under observation. Copies To: CC: KATELIN RODRIGUEZ MD, MORDO MD Dec 11, 2016 19:08
[2016-12-11] MEDS ORDERED: ONDANSETRON 4 MG INJ IV PRN (19:30)
[2016-12-11] MEDS ORDERED: MEPERIDINE 25 MG INJ IV PRN (19:30)
[2016-12-11] MEDS ORDERED: hydrALAzine 20 MG INJ IV PRN (19:30)
[2016-12-11] MEDS ORDERED: EPHEDrine SULFATE 50 MG/5 ML SYG IV PRN (19:30)
[2016-12-11] MEDS ORDERED: LABETALOL HCL 20MG INJ IV PRN (19:30)
[2016-12-11] MEDS ORDERED: DIPHENHYDRAMINE 50 MG INJ IV PRN (19:30)
[2016-12-11] MEDS ORDERED: FENTAnyl 50 MCG/ML VIAL IV PRN ×2 (19:30)
[2016-12-11] MEDS ORDERED: morphine (1 MG/ML) 10ML SYRINGE IV PRN ×2 (19:30)
[2016-12-11] MEDS ORDERED: METOCLOPRAMIDE 10 MG INJ IV PRN (19:30)
[2016-12-11] MEDS: TAMSULOSIN (SR) 0.4 MG CAP PO SCH (21:19)
--- NOTE | 2016-12-11 22:06 | RADRPT ---
PROCEDURE: Intraoperative imaging for ERCP with fluoroscopy. CLINICAL INDICATION: Right upper quadrant pain. Intraoperative. TECHNIQUE: 5 images of the right upper quadrant of the abdomen were obtained in the operating room with an image intensifier. No radiologist was in attendance. 83 seconds of fluoroscopy time was u sed. COMPARISON: MRCP dated 12/09/2016. FINDINGS: Images demonstrate the endoscope in position. Contrast was injected into the common bile duct. Filli ng defects are present in the common bile duct consistent with stones. The common bile duct is mildl y dilated. A balloon sweep was made. A dilation balloon was inflated across the ampullary region of the common bile duct. The pancreatic duct was not injected. Surgical clips are present from previous cholecystectomy. IMPRESSION: 1. ERCP as described above. RPTAT: QQ .Devante Last MD, Date Time Electronically viewed and signed by .Devante Last MD, on 12/11/2016 22:05 .R/
[2016-12-12] MEDS: D5-NS + KCL 20 MEQ 1,000 ML IV SCH ×3 (00:27→21:42)
[2016-12-12 02:00] VITALS: BP 111/57; RESP 20
[2016-12-12 07:34] VITALS: BP 133/61; PULSE 59; RESP 16
[2016-12-12] MEDS: FAMOTIDINE 20 MG TAB PO SCH ×2 (08:48→21:06)
[2016-12-12] MEDS: ENALAPRIL 20 MG TAB PO SCH (08:48)
[2016-12-12] MEDS: AMLODIPINE 5 MG TAB PO SCH (08:49)
[2016-12-12] MEDS: ENOXAPARIN 40 MG/0.4 ML SYG SC SCH (08:52)
--- NOTE | 2016-12-12 12:20 | PN ---
Date/Time of Note Date/Time of Note DATE: 12/12/16 TIME: 12:11 Assessment/Plan VTE Prophylaxis VTE Prophylaxis Intervention: SCD's Lines/Catheters IV [facility]ter Type (from [facility]): Peripheral IV Urinary Cath still in place: No Assessment/Plan Assessment/Plan 86-year-old male with: 1. Acute pancreatitis, status post ERCP, choledocholithiasis found, stones removed. Postoperative day #1 LFTs much improved, pancreatic enzymes normalized, WBC within normal. Hopefully to be started on clears today for okay with gastroenterology. Start titrating IV fluids down if tolerate p.o. Appreciate GI recommendations. 2. Hypertension: Continue home medications 3. BPH: Continue Flomax 4. Cataracts: Resume eyedrops if patient can provided. Prophylaxis: Lovenox for DVT prophylaxis, Pepcid for GI prophylaxis Disposition: Further recommendation per gastroenterology, hopefully discharge planning home within 24-48 hours Subjective 24 Hr Interval Summary Free Text/Dictation Patient remained stable, status post ERCP, pancreatic enzymes are normal this morning, he denies any abdominal pain. If okay with GI, patient will be started on clear liquids and advance as tolerated. Discharge planning hopefully in the next 24 to 48 hrs. Exam/Review of Systems Vital Signs Vitals Vital Signs Date Time Temp Pulse Resp B/P Pulse Ox O2 Delivery O2 Flow Rate FiO2 12/12/16 07:34 97.7 59 16 133/61 98 12/11/16 19:49 Room Air Intake and Output 12/11/16 12/11/16 12/12/16 15:00 23:00 07:00 Intake Total 50 ml 600 ml 850 ml Output Total 400 ml 850 ml Balance -350 ml -250 ml 850 ml Exam Constitutional: alert, oriented, well developed Respiratory: clear to auscultation, normal air movement Cardiovascular: nl pulses, regular rate and rhythm Gastrointestinal: non-tender, soft Musculoskeletal: nl extremities to inspection, nl gait and stance Extremities: normal pulses, other (No edema, clubbing or cyanosis) Neurological: TALENT DEVELOPMENT CONSULTANT II-XII intact, nl mental status, nl speech, nl strength Results Result Diagram: 12/12/16 0520 12/12/16 0526 Results 24 hrs Laboratory Tests Test 12/12/16 05:20 12/12/16 05:26 White Blood Count 3.5 #L Red Blood Count 3.73 L Hemoglobin 11.4 L Hematocrit 33.3 L Mean Corpuscular Volume 89.3 Mean Corpuscular Hemoglobin 30.6 Mean Corpuscular Hemoglobin Concent 34.2 Red Cell Distribution Width 11.9 Platelet Count 235 Mean Platelet Volume 11.0 H Neutrophils % 82.9 H Lymphocytes % 13.1 L Monocytes % 3.7 Eosinophils % 0.0 Basophils % 0.0 Nucleated Red Blood Cells % 0.0 Neutrophils # 2.9 Lymphocytes # 0.5 L Monocytes # 0.1 L Eosinophils # 0.0 Basophils # 0.0 Nucleated Red Blood Cells # 0.0 Phosphorus Level 4.0 Magnesium Level 2.0 Amylase Level < 30 Lipase 248 Sodium Level 141 Potassium Level 4.6 Chloride Level 110 Carbon Dioxide Level 26 Anion Gap 10 Blood Urea Nitrogen 8 Creatinine 0.68 Glucose Level 166 Calcium Level 8.4 Total Bilirubin 0.1 L Direct Bilirubin 0.00 Indirect Bilirubin 0.1 Aspartate Amino Transf (AST/SGOT) 18 Alanine Aminotransferase (ALT/SGPT) 52 Alkaline Phosphatase 176 H Total Protein 6.2 Albumin 2.7 L Globulin 3.50 H Albumin/Globulin Ratio 0.77 Medications Medications Current Medications Ondansetron HCl (Zofran Inj) 4 mg Q6H PRN IV NAUSEA AND/OR VOMITING; Start at 22:30 Acetaminophen (Tylenol Tab) 650 mg Q6H PRN PO PAIN LEVEL 1-3 OR FEVER; Start 12/08/16 at 22:30 Acetaminophen/ Hydrocodone Bitart ([place] (5/325)) 1 tab Q6H PRN PO PAIN LEVEL 4 -6; Start 12/08/16 at 22:30 Acetaminophen/ Hydrocodone Bitart ([place] (5/325)) 2 tab Q6H PRN PO PAIN LEVEL 7 -10; Start 12/08/16 at 22:30 Docusate Sodium (Colace) 100 mg Q12H PRN PO CONSTIPATION Last administered on 12/10/16 20:03; Admin Dose 100 MG; Start 12/08/16 at 22:30 Famotidine (Pepcid) 20 mg Q12 PO Last administered on 12/12/16 08:48; Admin Dose 20 MG; Start 12/08/16 at 22:30 Enoxaparin Sodium 40 mg 40 mg DAILY SC Last administered on 12/12/16 08:52; Admin Dose 40 MG; Start 12/09/16 at 09:00 Potassium Chloride/Dextrose/ Sod Cl (D5-NS + KCl 20 Meq) 1,000 ml @ 100 mls/hr Q10H IV Last administered on 12/12/16 10:56; Admin Dose 100 MLS/HR; Start at 23:30 Amlodipine Besylate (Norvasc) 5 mg DAILY PO Last administered on 12/12/16 08: 49; Admin Dose 5 MG; Start 12/09/16 at 14:30 Enalapril Maleate (Vasotec) 20 mg DAILY PO Last administered on 12/12/16 08: 48; Admin Dose 20 MG; Start 12/09/16 at 14:30 Tamsulosin HCl (Flomax) 0.4 mg HS PO Last administered on 12/11/16 21:19; Admin Dose 0.4 MG; Start 12/09/16 at 21:00 Hydralazine HCl (Apresoline) 10 mg Q8H PRN IV ELEVATED BLOOD PRESSURE; Start 12/09/16 at 15:00 RUPALI CHAPA Dec 12, 2016 12:20
[2016-12-12 13:06] VITALS: BP 129/66; RESP 20
--- NOTE | 2016-12-12 14:17 | PN ---
Date/Time of Note Date/Time of Note DATE: 12/12/16 TIME: 14:15 Assessment/Plan VTE Prophylaxis VTE Prophylaxis Intervention: SCD's Lines/Catheters IV C[facility] Type (from [facility] Peripheral IV Urinary Cath still in place: No Assessment/Plan Chief Complaint/Hosp Course Summary Assessment and Plan: Assessment: Acute pancreatitis r/t obstruction with confirmation on MRCP Leukocytosis-trending down Hypertension BPH Cataracts Glaucoma Plan: Lipase WNL Clear liquid diet advance tomorrow Patient seen in collaboration with Dr. Allison Subjective: Course reviewed with nursing staff Patient interviewed and examined All labs, imaging and other results reviewed Feeling very well, denies any abd pain s/p ERCP yesterday lipase wnl PHYSICAL EXAMINATION: GENERAL: Well developed, well nourished, alert & oriented x 3, in no acute distress SKIN: No lesions, no stigmata chronic liver disease, no evidence of bleeding diathesis LYMPHATIC: No palpable lymphadenopathy. HEAD: Normocephalic, atraumatic, no tenderness. EYES: Pupils equal reactive to light and accommodation, full extraocular movements, sclera clear, non-icteric, no discharge. EARS/NOSE AND THROAT: Ears normal, nose normal, oropharynx normal, oral membranes well hydrated without lesions. NECK: Supple, no masses, thyroid normal, JVP within normal limits, carotids normal without bruits. CHEST: Inspection within normal limits. CARDIOVASCULAR: Heart: Regular rate and rhythm, no murmurs, gallops or rubs. Peripheral pulses present within normal limits, no cyanosis, clubbing or edemas. No pulsatile abdominal mass RESPIRATORY: Lungs clear to auscultation and percussion, no wheezing, no rubs GASTROINTESTINAL AND LIVER: Abdomen: Soft, non tenderness, non-distended, no hernias, no masses, no organomegaly, no ascites, no guarding, no rebound tenderness, normoactive bowel sounds. Rectal: Deferred. GENITOURINARY: [Male genitalia within normal limits.][Female genitalia within normal limits.] EXTREMITIES: No cyanosis, clubbing or edema. Problems: Exam/Review of Systems Vital Signs Vitals Vital Signs Date Time Temp Pulse Resp B/P Pulse Ox O2 Delivery O2 Flow Rate FiO2 12/12/16 13:06 98.7 59 20 129/66 98 12/11/16 19:49 Room Air Intake and Output 1012/11/16 12/12/16 15:00 23:00 07:00 Intake Total 50 ml 600 ml 850 ml Output Total 400 ml 850 ml Balance -350 ml -250 ml 850 ml Results Result Diagram: 12/12/16 0520 12/12/16 0526 Results 24 hrs Laboratory Tests Test 12/12/16 05:20 12/12/16 05:26 White Blood Count 3.5 #L Red Blood Count 3.73 L Hemoglobin 11.4 L Hematocrit 33.3 L Mean Corpuscular Volume 89.3 Mean Corpuscular Hemoglobin 30.6 Mean Corpuscular Hemoglobin Concent 34.2 Red Cell Distribution Width 11.9 Platelet Count 235 Mean Platelet Volume 11.0 H Neutrophils % 82.9 H Lymphocytes % 13.1 L Monocytes % 3.7 Eosinophils % 0.0 Basophils % 0.0 Nucleated Red Blood Cells % 0.0 Neutrophils # 2.9 Lymphocytes # 0.5 L Monocytes # 0.1 L Eosinophils # 0.0 Basophils # 0.0 Nucleated Red Blood Cells # 0.0 Phosphorus Level 4.0 Magnesium Level 2.0 Amylase Level < 30 Lipase 248 Sodium Level 141 Potassium Level 4.6 Chloride Level 110 Carbon Dioxide Level 26 Anion Gap 10 Blood Urea Nitrogen 8 Creatinine 0.68 Glucose Level 166 Calcium Level 8.4 Total Bilirubin 0.1 L Direct Bilirubin 0.00 Indirect Bilirubin 0.1 Aspartate Amino Transf (AST/SGOT) 18 Alanine Aminotransferase (ALT/SGPT) 52 Alkaline Phosphatase 176 H Total Protein 6.2 Albumin 2.7 L Globulin 3.50 H Albumin/Globulin Ratio 0.77 Medications Medications Current Medications Ondansetron HCl (Zofran Inj) 4 mg Q6H PRN IV NAUSEA AND/OR VOMITING; Start at 22:30 Acetaminophen (Tylenol Tab) 650 mg Q6H PRN PO PAIN LEVEL 1-3 OR FEVER; Start 12/08/16 at 22:30 Acetaminophen/ Hydrocodone Bitart ([place] (5/325)) 1 tab Q6H PRN PO PAIN LEVEL 4 -6; Start 12/08/16 at 22:30 Acetaminophen/ Hydrocodone Bitart ([place] (5/325)) 2 tab Q6H PRN PO PAIN LEVEL 7 -10; Start 12/08/16 at 22:30 Docusate Sodium (Colace) 100 mg Q12H PRN PO CONSTIPATION Last administered on 12/10/16 20:03; Admin Dose 100 MG; Start 12/08/16 at 22:30 Famotidine (Pepcid) 20 mg Q12 PO Last administered on 12/12/16 08:48; Admin Dose 20 MG; Start 12/08/16 at 22:30 Enoxaparin Sodium 40 mg 40 mg DAILY SC Last administered on 12/12/16 08:52; Admin Dose 40 MG; Start 12/09/16 at 09:00 Potassium Chloride/Dextrose/ Sod Cl (D5-NS + KCl 20 Meq) 1,000 ml @ 100 mls/hr Q10H IV Last administered on 12/12/16 10:56; Admin Dose 100 MLS/HR; Start at 23:30 Amlodipine Besylate (Norvasc) 5 mg DAILY PO Last administered on 12/12/16 08: 49; Admin Dose 5 MG; Start 12/09/16 at 14:30 Enalapril Maleate (Vasotec) 20 mg DAILY PO Last administered on 12/12/16 08: 48; Admin Dose 20 MG; Start 12/09/16 at 14:30 Tamsulosin HCl (Flomax) 0.4 mg HS PO Last administered on 12/11/16 21:19; Admin Dose 0.4 MG; Start 12/09/16 at 21:00 Hydralazine HCl (Apresoline) 10 mg Q8H PRN IV ELEVATED BLOOD PRESSURE; Start 12/09/16 at 15:00 GLORIA DIAZ Dec 12, 2016 14:17
[2016-12-12 16:30] VITALS: BP 148/70; PULSE 68; RESP 19
[2016-12-12 20:00] VITALS: BP 156/69; RESP 20
[2016-12-12] MEDS: TAMSULOSIN (SR) 0.4 MG CAP PO SCH (21:06)
[2016-12-13 02:00] VITALS: BP 126/59; RESP 20
[2016-12-13] MEDS: D5-NS + KCL 20 MEQ 1,000 ML IV SCH ×2 (02:01→08:46)
[2016-12-13 07:31] VITALS: BP 135/67; PULSE 54; RESP 16
[2016-12-13 07:43] VITALS: BP 142/63; RESP 18
[2016-12-13] MEDS: FAMOTIDINE 20 MG TAB PO SCH (08:46)
[2016-12-13] MEDS: AMLODIPINE 5 MG TAB PO SCH (08:46)
[2016-12-13] MEDS: ENALAPRIL 20 MG TAB PO SCH (08:46)
[2016-12-13] MEDS: ENOXAPARIN 40 MG/0.4 ML SYG SC SCH (08:50)
--- NOTE | 2016-12-13 09:39 | PN ---
Date/Time of Note Date/Time of Note DATE: 12/13/16 TIME: 09:37 Assessment/Plan VTE Prophylaxis VTE Prophylaxis Intervention: ambulation Lines/Catheters IV Catheter Type (from [facility] [place]): Peripheral IV Urinary Cath still in place: No Assessment/Plan Chief Complaint/Hosp Course Summary Assessment and Plan: Assessment: Acute pancreatitis r/t obstruction with confirmation on MRCP ERCP 12/11 Choledocholithiasis Post sphincterotomy Post balloon dilatation of the ampulla Vater Post stone removal Leukocytosis-trending down Hypertension BPH Cataracts Glaucoma Plan: Soft diet advance as tolerated Pt doing very well Cleared from GI point of view Patient seen in collaboration with Dr. Allison Subjective: Course reviewed with nursing staff Patient interviewed and examined All labs, imaging and other results reviewed Patient feeling well, will advance diet, if tolerate well can be d/c'd home PHYSICAL EXAMINATION: GENERAL: Well developed, well nourished, alert & oriented x 3, in no acute distress SKIN: No lesions, no stigmata chronic liver disease, no evidence of bleeding diathesis LYMPHATIC: No palpable lymphadenopathy. HEAD: Normocephalic, atraumatic, no tenderness. EYES: Pupils equal reactive to light and accommodation, full extraocular movements, sclera clear, non-icteric, no discharge. EARS/NOSE AND THROAT: Ears normal, nose normal, oropharynx normal, oral membranes well hydrated without lesions. NECK: Supple, no masses, thyroid normal, JVP within normal limits, carotids normal without bruits. CHEST: Inspection within normal limits. CARDIOVASCULAR: Heart: Regular rate and rhythm, no murmurs, gallops or rubs. Peripheral pulses present within normal limits, no cyanosis, clubbing or edemas. No pulsatile abdominal mass RESPIRATORY: Lungs clear to auscultation and percussion, no wheezing, no rubs GASTROINTESTINAL AND LIVER: Abdomen: Soft, non tenderness, non-distended, no hernias, no masses, no organomegaly, no ascites, no guarding, no rebound tenderness, normoactive bowel sounds. Rectal: Deferred. GENITOURINARY: [Male genitalia within normal limits.][Female genitalia within normal limits.] EXTREMITIES: No cyanosis, clubbing or edema. Problems: Exam/Review of Systems Vital Signs Vitals Vital Signs Date Time Temp Pulse Resp B/P Pulse Ox O2 Delivery O2 Flow Rate FiO2 12/13/16 07:43 98.1 53 18 142/63 98 12/12/16 16:30 Room Air Intake and Output 12/12/16 12/12/16 12/13/16 15:00 23:00 07:00 Intake Total 1980 ml 1040 ml Output Total 800 ml Balance 1980 ml 240 ml Results Result Diagram: 12/12/16 0520 12/12/16 0526 Medications Medications Current Medications Ondansetron HCl (Zofran Inj) 4 mg Q6H PRN IV NAUSEA AND/OR VOMITING; Start at 22:30 Acetaminophen (Tylenol Tab) 650 mg Q6H PRN PO PAIN LEVEL 1-3 OR FEVER; Start 12/08/16 at 22:30 Acetaminophen/ Hydrocodone Bitart ([place] (5/325)) 1 tab Q6H PRN PO PAIN LEVEL 4 -6; Start 12/08/16 at 22:30 Acetaminophen/ Hydrocodone Bitart ([place] (5/325)) 2 tab Q6H PRN PO PAIN LEVEL 7 -10; Start 12/08/16 at 22:30 Docusate Sodium (Colace) 100 mg Q12H PRN PO CONSTIPATION Last administered on 12/10/16 20:03; Admin Dose 100 MG; Start 12/08/16 at 22:30 Famotidine (Pepcid) 20 mg Q12 PO Last administered on 12/13/16 08:46; Admin Dose 20 MG; Start 12/08/16 at 22:30 Enoxaparin Sodium 40 mg 40 mg DAILY SC Last administered on 12/13/16 08:50; Admin Dose 40 MG; Start 12/09/16 at 09:00 Potassium Chloride/Dextrose/ Sod Cl (D5-NS + KCl 20 Meq) 1,000 ml @ 100 mls/hr Q10H IV Last administered on 12/13/16 08:46; Admin Dose 100 MLS/HR; Start at 23:30 Amlodipine Besylate (Norvasc) 5 mg DAILY PO Last administered on 12/13/16 08: 46; Admin Dose 5 MG; Start 12/09/16 at 14:30 Enalapril Maleate (Vasotec) 20 mg DAILY PO Last administered on 12/13/16 08: 46; Admin Dose 20 MG; Start 10/23/17 at 14:30 Tamsulosin HCl (Flomax) 0.4 mg HS PO Last administered on 12/12/16t 21:06; Admin Dose 0.4 MG; Start 12/09/16 at 21:00 Hydralazine HCl (Apresoline) 10 mg Q8H PRN IV ELEVATED BLOOD PRESSURE; Start 12/09/16 at 15:00 GLORIA DIAZ Dec 13, 2016 09:39
--- NOTE | 2016-12-13 09:48 | PN ---
Date/Time of Note Date/Time of Note DATE: 12/13/16 TIME: 09:45 Assessment/Plan VTE Prophylaxis VTE Prophylaxis Intervention: SCD's Lines/Catheters IV [facility]ter Type (from [facility]): Peripheral IV Urinary Cath still in place: No Assessment/Plan Assessment/Plan 86-year-old male with: 1. Acute pancreatitis, status post ERCP, choledocholithiasis found, stones removed. Postoperative day #2 LFTs much improved, pancreatic enzymes normalized, WBC within normal as of yesterday Tolerating p.o. well, advancing diet today, discharge plan home after lunch if well tolerated and no abdominal pain. D/C IV fluids, advancing to regular diet. Appreciate GI recommendations. 2. Hypertension: Continue home medications 3. BPH: Continue Flomax 4. Cataracts: Resume eyedrops if patient can provided. Prophylaxis: Lovenox for DVT prophylaxis, Pepcid for GI prophylaxis Disposition: Discharge home today if tolerates lunch. Follow-up with primary care physician within 1 week Subjective 24 Hr Interval Summary Free Text/Dictation Patient doing well, no complaints today. No abdominal pain. Tolerating clears well, D/C IV fluids, advancing diet. Discharge planning this afternoon if tolerates lunch. Exam/Review of Systems Vital Signs Vitals Vital Signs Date Time Temp Pulse Resp B/P Pulse Ox O2 Delivery O2 Flow Rate FiO2 12/13/16 07:43 98.1 53 18 142/63 98 12/12/16 16:30 Room Air Intake and Output 12/12/16 12/12/16 12/13/16 15:00 23:00 07:00 Intake Total 1980 ml 1040 ml Output Total 800 ml Balance 1980 ml 240 ml Exam Constitutional: alert, oriented, well developed Respiratory: clear to auscultation, normal air movement Cardiovascular: nl pulses, regular rate and rhythm Gastrointestinal: non-tender, soft Musculoskeletal: nl extremities to inspection, nl gait and stance Extremities: normal pulses, other (No edema, clubbing or cyanosis) Neurological: RADIO TESTER II-XII intact, nl mental status, nl speech, nl strength Results Result Diagram: 12/12/1651912/12/16525 Medications Medications Current Medications Ondansetron HCl (Zofran Inj) 4 mg Q6H PRN IV NAUSEA AND/OR VOMITING; Start at 22:30 Acetaminophen (Tylenol Tab) 650 mg Q6H PRN PO PAIN LEVEL 1-3 OR FEVER; Start 12/08/16 at 22:30 Acetaminophen/ Hydrocodone Bitart ([place] (5/325)) 1 tab Q6H PRN PO PAIN LEVEL 4 -6; Start 12/08/16 at 22:30 Acetaminophen/ Hydrocodone Bitart ([place] (5/325)) 2 tab Q6H PRN PO PAIN LEVEL 7 -10; Start 12/08/16 at 22:30 Docusate Sodium (Colace) 100 mg Q12H PRN PO CONSTIPATION Last administered on 12/10/16 20:03; Admin Dose 100 MG; Start 12/08/16 at 22:30 Famotidine (Pepcid) 20 mg Q12 PO Last administered on 12/13/16 08:46; Admin Dose 20 MG; Start 12/08/16 at 22:30 Enoxaparin Sodium 40 mg 40 mg DAILY SC Last administered on 12/13/16 08:50; Admin Dose 40 MG; Start 12/09/16 at 09:00 Potassium Chloride/Dextrose/ Sod Cl (D5-NS + KCl 20 Meq) 1,000 ml @ 100 mls/hr Q10H IV Last administered on 12/13/16 08:46; Admin Dose 100 MLS/HR; Start at 23:30 Amlodipine Besylate (Norvasc) 5 mg DAILY PO Last administered on 12/13/16 08: 46; Admin Dose 5 MG; Start 12/09/16 at 14:30 Enalapril Maleate (Vasotec) 20 mg DAILY PO Last administered on 12/13/16 08: 46; Admin Dose 20 MG; Start 12/09/16 at 14:30 Tamsulosin HCl (Flomax) 0.4 mg HS PO Last administered on 12/12/16 21:06; Admin Dose 0.4 MG; Start 12/09/16 at 21:00 Hydralazine HCl (Apresoline) 10 mg Q8H PRN IV ELEVATED BLOOD PRESSURE; Start 12/09/16 at 15:00 RUPALI CHAPA Dec 13, 2016 09:48
--- NOTE | 2016-12-13 09:48 | PN ---
Date/Time of Note Date/Time of Note DATE: 12/13/16 TIME: 09:45 Assessment/Plan VTE Prophylaxis VTE Prophylaxis Intervention: SCD's Lines/Catheters IV Catheter Type (from [facility]): Peripheral IV Urinary Cath still in place: No Assessment/Plan Assessment/Plan 86-year-old male with: 1. Acute pancreatitis, status post ERCP, choledocholithiasis found, stones removed. Postoperative day #2 LFTs much improved, pancreatic enzymes normalized, WBC within normal as of yesterday Tolerating p.o. well, advancing diet today, discharge plan home after lunch if well tolerated and no abdominal pain. D/C IV fluids, advancing to regular diet. Appreciate GI recommendations. 2. Hypertension: Continue home medications 3. BPH: Continue Flomax 4. Cataracts: Resume eyedrops if patient can provided. Prophylaxis: Lovenox for DVT prophylaxis, Pepcid for GI prophylaxis Disposition: Discharge home today if tolerates lunch. Follow-up with primary care physician within 1 week Subjective 24 Hr Interval Summary Free Text/Dictation Patient doing well, no complaints today. No abdominal pain. Tolerating clears well, D/C IV fluids, advancing diet. Discharge planning this afternoon if tolerates lunch. Exam/Review of Systems Vital Signs Vitals Vital Signs Date Time Temp Pulse Resp B/P Pulse Ox O2 Delivery O2 Flow Rate FiO2 12/13/16 07:43 98.1 53 18 142/63 98 12/12/16 16:30 Room Air Intake and Output 12/12/16 12/12/16 12/13/16 15:00 23:00 07:00 Intake Total 1980 ml 1040 ml Output Total 800 ml Balance 1980 ml 240 ml Exam Constitutional: alert, oriented, well developed Respiratory: clear to auscultation, normal air movement Cardiovascular: nl pulses, regular rate and rhythm Gastrointestinal: non-tender, soft Musculoskeletal: nl extremities to inspection, nl gait and stance Extremities: normal pulses, other (No edema, clubbing or cyanosis) Neurological: MILL TENDER WARM UP II-XII intact, nl mental status, nl speech, nl strength Results Result Diagram: 12/12/1651912/12/16525 Medications Medications Current Medications Ondansetron HCl (Zofran Inj) 4 mg Q6H PRN IV NAUSEA AND/OR VOMITING; Start at 22:30 Acetaminophen (Tylenol Tab) 650 mg Q6H PRN PO PAIN LEVEL 1-3 OR FEVER; Start 12/08/16 at 22:30 Acetaminophen/ Hydrocodone Bitart ([place] (5/325)) 1 tab Q6H PRN PO PAIN LEVEL 4 -6; Start 12/08/16 at 22:30 Acetaminophen/ Hydrocodone Bitart ([place] (5/325)) 2 tab Q6H PRN PO PAIN LEVEL 7 -10; Start 12/08/16 at 22:30 Docusate Sodium (Colace) 100 mg Q12H PRN PO CONSTIPATION Last administered on 12/10/16 20:03; Admin Dose 100 MG; Start 12/08/16 at 22:30 Famotidine (Pepcid) 20 mg Q12 PO Last administered on 12/13/16 08:46; Admin Dose 20 MG; Start 12/08/16 at 22:30 Enoxaparin Sodium 40 mg 40 mg DAILY SC Last administered on 12/13/16 08:50; Admin Dose 40 MG; Start 12/09/16 at 09:00 Potassium Chloride/Dextrose/ Sod Cl (D5-NS + KCl 20 Meq) 1,000 ml @ 100 mls/hr Q10H IV Last administered on 12/13/16 08:46; Admin Dose 100 MLS/HR; Start at 23:30 Amlodipine Besylate (Norvasc) 5 mg DAILY PO Last administered on 12/13/16 08: 46; Admin Dose 5 MG; Start 12/09/16 at 14:30 Enalapril Maleate (Vasotec) 20 mg DAILY PO Last administered on 12/13/16 08: 46; Admin Dose 20 MG; Start 12/09/16 at 14:30 Tamsulosin HCl (Flomax) 0.4 mg HS PO Last administered on 12/12/16 21:06; Admin Dose 0.4 MG; Start 12/09/16 at 21:00 Hydralazine HCl (Apresoline) 10 mg Q8H PRN IV ELEVATED BLOOD PRESSURE; Start 12/09/16 at 15:00 RUPALI CHAPA Dec 13, 2016 09:48
--- NOTE | 2016-12-13 09:49 | PDOCDIS ---
Discharge Instructions CONDITION Patient Condition: Good HOME CARE INSTRUCTIONS: Diet Instructions: Low Fat /Cholesterol ACTIVITY: Activity Restrictions: No Restrictions FOLLOW UP/APPOINTMENTS Follow-up Plan Follow-up with primary care physician within 1 week RUPALI CHAPA Dec 13, 2016 09:49
[2016-12-13 14:01] VITALS: BP 142/67; RESP 18
== END 2016-12-13 15:14 | disposition home or self-care (01) | DRG 444 ==
LOC: E/R 17:28 → TEL 22:16 → MS2 12-09 16:46
PROVIDERS: ADMIT Internal Medicine; ATTEND Internal Medicine
PROC: 0F798ZZ Dilation of Common Bile Duct, Via Natural or Artificial Opening Endoscopic (ICD-10-PCS; 2016-12-11)
PROC: 0FC98ZZ Extirpation of Matter from Common Bile Duct, Via Natural or Artificial Opening Endoscopic (ICD-10-PCS; principal; 2016-12-11 17:00)
DX: K80.50 Calculus of bile duct without cholangitis or cholecystitis without obstruction (principal); K85.90 Acute pancreatitis without necrosis or infection, unspecified; I10 Essential (primary) hypertension; N40.0 Benign prostatic hyperplasia without lower urinary tract symptoms; H26.9 Unspecified cataract; F10.21 Alcohol dependence, in remission; Z87.891 Personal history of nicotine dependence
CPT/HCPCS: 36415; 74176; 74181; 74330; 80048; 80053; 80061; 80076; 81003; 82150; 82550; 82553; 83690; 83735; 84100; 84443; 84484; 85025; 85610; 85730; 86704; 86709; 86803; 87340; 90686; 96374; 96375; J0690; J1100; J1650; J1885; J2370; J2405; J2543; J2765; J3010; J3480; J7030; Q9967